=== PATIENT | female | born 1960 | race Two or more races ===

== ENCOUNTER 2020-12-11 23:53 | Inpatient (IN) | payer OTHER ==
[~2020-12-11] VITALS: Ht 162.6 cm; Wt 83.0 kg
[2020-12-12] MEDS ORDERED: ACETAMINOPHEN 500 MG TAB PO ONE (01:00)
[2020-12-12 01:09] LABS: Basophils # (auto) 0 10 ^3/uL (0-0.2); Basophils % (auto) 0.2 % (0.0-2.0); Eosinophils # (auto) 0 10 ^3/uL (0-0.8); Hematocrit 39.3 % (36.0-46.0); Hemoglobin 13.5 g/dL (12.2-16.2); Lymphocytes # (auto) 0.8 10 ^3/uL (0.4-5.4); Lymphocytes % (auto) 7.7 % (10.0-50.0); Mean Corpuscular Hemoglobin 30.5 pg (28.0-32.0); Mean Corpuscular Hgb Conc. 34.5 g/dL (32.0-36.0); Mean Corpuscular Volume 88.4 fL (80.0-100.0); Monocytes # (auto) 0.6 10 ^3/uL (0-1.3); Monocytes % (auto) 5.5 % (0.0-12.0); Neutrophils # (auto) 8.6 10 ^3/uL (1.6-8.6); Neutrophils % (auto) 86.6 % (37.0-80.0); Red Blood Cells 4.45 10^6/uL (4.0-5.20); Red Cell Distribution Width 14.5 % (11.8-14.3)
[2020-12-12 01:37] LABS: Alanine Aminotransferase 113 U/L (13-56); Albumin 2.9 g/dL (3.4-5.0); Anion Gap 8 (5-15); Aspartate Aminotransferase 76 U/L (15-37); BUN/Creatinine Ratio 23.8; Blood Urea Nitrogen 19 mg/dL (7-18); Calcium 8.5 mg/dL (8.5-10.1); Carbon Dioxide 25 mmol/L (21-32); Chloride 102 mmol/L (98-107); GFR African American 93 mL/min; GFR Non-African American 77 mL/min; Glucose 162 mg/dL (74-106); Potassium 3.4 mmol/L (3.5-5.1); Sodium 135 mmol/L (136-145)
[2020-12-12 01:41] LABS: Alkaline Phosphatase 62 U/L (45-117); Bilirubin, Total 0.6 mg/dL (0.2-1.0); Total Protein 7.9 g/dL (6.4-8.2)
[2020-12-12] MEDS ORDERED: DexAMETHasone SOD PHOS 10MG/1ML VIAL INJ IV ONE (01:45)
[2020-12-12] MEDS ORDERED: AZITHROMYCIN 500MG/ 250ML 250 ML IV ONE (02:00)
[2020-12-12] MEDS ORDERED: ACETAMINOPHEN 500 MG TAB PO PRN (02:45)
[2020-12-12] MEDS ORDERED: NITROGLYCERIN 0.4 MG SL TAB SL PRN (02:45)
[2020-12-12] MEDS ORDERED: MORPHINE SULFATE INJECTION 2 MG/ML SYRG IV PRN (02:45)
[2020-12-12] MEDS ORDERED: DEXTROSE (50%) 50ML SYRG IV PRN (02:45)
[2020-12-12] MEDS ORDERED: REMDESIVIR PER PHARMACY 0 ML IV SCH (02:45)
[2020-12-12] MEDS ORDERED: TEMAZEPAM 15 MG CAP PO PRN (02:45)
[2020-12-12 03:14] LABS: Magnesium 2.3 mg/dL (1.6-2.6)
[2020-12-12 03:23] LABS: CRP High Sensitivity 10.4 mg/dL (< 0.3)
[2020-12-12] MEDS: InsuLIN REG 1unit/0.01ml Soln (100units/ml) SC SCH ×4 (08:14→22:08)
[2020-12-12] MEDS: ACCU-CHEK COMFORT CURVE STRIP VI SCH ×4 (08:16→21:57)
[2020-12-12] MEDS: DexAMETHasone SOD PHOS 10MG/1ML VIAL INJ IV SCH (08:28)
[2020-12-12] MEDS: AZITHROMYCIN 500MG/ 250ML 250 ML IV SCH (08:28)
[2020-12-12] MEDS: ZINC SULFATE 220mg CAP or TAB PO SCH (08:29)
[2020-12-12] MEDS: ASCORBIC ACID 1,000 MG TAB PO SCH (08:29)
[2020-12-12] MEDS: ENOXAPARIN SOD 40 MG/0.4 ML SYRINGE SC SCH ×2 (08:29→22:05)
[2020-12-12] MEDS: CHOLECALCIFEROL (VITD3) 2,000 UNIT CAP/TAB PO SCH (08:29)
[2020-12-12] MEDS ORDERED: cefTRIAXone 1GM/50ML D5W 50 ML IV SCH (09:00)
[2020-12-12] MEDS: BUDESONIDE (INHALATION) 180 MCG IH IN SCH ×2 (10:00→19:00)
[2020-12-12] MEDS ORDERED: FERR27TA2 PO (16:31)
[2020-12-12] MEDS ORDERED: HYDR25TA5 PO (16:31)
[2020-12-12] MEDS ORDERED: METF-370 PO (16:31)
[2020-12-12] MEDS ORDERED: FENO145T27 PO ×2 (16:32→16:33)
[2020-12-12] MEDS ORDERED: AML5T PO (16:32)
[2020-12-12] MEDS ORDERED: LOSA-39 PO (16:32)
[2020-12-12] MEDS ORDERED: METO-158 PO (16:32)
[2020-12-12] MEDS ORDERED: ATOR20TA PO (16:33)
[2020-12-12] MEDS ORDERED: VENL37.572 PO (16:33)
[2020-12-12] MEDS ORDERED: REMDESIVIR 200 MG in NS 210ml LOADING DOSE ADULT IV ONE (21:00)
[2020-12-12] MEDS: INSULIN LANTUS (GLARGINE) 1 /0.01ml (100units/ml) SC SCH (22:09)
[2020-12-13 06:30] LABS: Basophils # (auto) 0 10 ^3/uL (0-0.2); Eosinophils # (auto) 0 10 ^3/uL (0-0.8); Hematocrit 39.4 % (36.0-46.0); Hemoglobin 13.5 g/dL (12.2-16.2); Lymphocytes # (auto) 1.1 10 ^3/uL (0.4-5.4); Lymphocytes % (auto) 7.6 % (10.0-50.0); Mean Corpuscular Hemoglobin 30.1 pg (28.0-32.0); Mean Corpuscular Hgb Conc. 34.3 g/dL (32.0-36.0); Mean Corpuscular Volume 87.7 fL (80.0-100.0); Monocytes # (auto) 0.6 10 ^3/uL (0-1.3); Monocytes % (auto) 4.4 % (0.0-12.0); Neutrophils # (auto) 12.5 10 ^3/uL (1.6-8.6); Red Blood Cells 4.49 10^6/uL (4.0-5.20); Red Cell Distribution Width 14.2 % (11.8-14.3); White Blood Cell 14.2 10^3/uL (4.4-10.8)
[2020-12-13] MEDS: ACCU-CHEK COMFORT CURVE STRIP VI SCH ×4 (06:34→21:42)
[2020-12-13] MEDS: InsuLIN REG 1unit/0.01ml Soln (100units/ml) SC SCH ×4 (06:40→21:43)
[2020-12-13] MEDS: ALBUTEROL SULF HFA 90MCG INH 200DOSE IN PRN ×2 (08:13→22:45)
[2020-12-13] MEDS: BUDESONIDE (INHALATION) 180 MCG IH IN SCH ×2 (08:13→22:05)
[2020-12-13] MEDS: cefTRIAXone 1GM/50ML D5W 50 ML IV SCH (08:53)
[2020-12-13 09:21] LABS: Albumin 2.5 g/dL (3.4-5.0); BUN/Creatinine Ratio 35.9; Calcium 8.7 mg/dL (8.5-10.1); Potassium 3.3 mmol/L (3.5-5.1)
[2020-12-13] MEDS: AZITHROMYCIN 500MG/ 250ML 250 ML IV SCH (09:23)
[2020-12-13 09:24] LABS: Bilirubin, Total 0.4 mg/dL (0.2-1.0); Total Protein 7.3 g/dL (6.4-8.2)
[2020-12-13] MEDS: ENOXAPARIN SOD 40 MG/0.4 ML SYRINGE SC SCH ×2 (09:34→21:41)
[2020-12-13] MEDS: CHOLECALCIFEROL (VITD3) 2,000 UNIT CAP/TAB PO SCH (09:34)
[2020-12-13] MEDS: DexAMETHasone SOD PHOS 10MG/1ML VIAL INJ IV SCH (09:35)
[2020-12-13] MEDS: PANTOPRAZOLE 40 MG TAB PO SCH (09:35)
[2020-12-13] MEDS: ASCORBIC ACID 1,000 MG TAB PO SCH (09:35)
[2020-12-13] MEDS: ZINC SULFATE 220mg CAP or TAB PO SCH (09:35)
[2020-12-13] MEDS ORDERED: POTASSIUM CHL 20 Meq TABLET PO ONE (13:15)
[2020-12-13] MEDS: VENLAFAXINE HCL 37.5mg XR cap PO SCH (14:14)
[2020-12-13] MEDS: REMDESIVIR 100mg 100 MG in SODIUM CHL 0.9% 230 ML IV SCH (14:15)
[2020-12-13 17:00] VITALS: BP 133/77
[2020-12-13] MEDS: ATORVASTATIN 20 MG TAB PO SCH (21:41)
[2020-12-13] MEDS: INSULIN LANTUS (GLARGINE) 1 /0.01ml (100units/ml) SC SCH (21:42)
[2020-12-13 22:00] VITALS: BP 122/74
[2020-12-14] MEDS ORDERED: FENO54TA4 PO (00:58)
[2020-12-14] MEDS ORDERED: OMEP20TA PO (00:58)
[2020-12-14 05:00] VITALS: BP 122/67
[2020-12-14 06:25] LABS: Basophils # (auto) 0 10 ^3/uL (0-0.2); Basophils % (auto) 0.2 % (0.0-2.0); Eosinophils # (auto) 0 10 ^3/uL (0-0.8); Hematocrit 38.4 % (36.0-46.0); Hemoglobin 12.9 g/dL (12.2-16.2); Lymphocytes % (auto) 10.5 % (10.0-50.0); Mean Corpuscular Hemoglobin 29.7 pg (28.0-32.0); Mean Corpuscular Hgb Conc. 33.7 g/dL (32.0-36.0); Mean Corpuscular Volume 88.1 fL (80.0-100.0); Monocytes # (auto) 0.5 10 ^3/uL (0-1.3); Monocytes % (auto) 5.5 % (0.0-12.0); Neutrophils # (auto) 8.3 10 ^3/uL (1.6-8.6); Neutrophils % (auto) 83.8 % (37.0-80.0); Nucleated Red Blood Cells % 0.1 %; Red Blood Cells 4.36 10^6/uL (4.0-5.20); Red Cell Distribution Width 14.1 % (11.8-14.3); White Blood Cell 9.9 10^3/uL (4.4-10.8)
[2020-12-14] MEDS: InsuLIN REG 1unit/0.01ml Soln (100units/ml) SC SCH ×4 (06:31→21:10)
[2020-12-14] MEDS: ACCU-CHEK COMFORT CURVE STRIP VI SCH ×4 (06:31→21:10)
[2020-12-14 06:40] LABS: Albumin 2.3 g/dL (3.4-5.0); Calcium 8.5 mg/dL (8.5-10.1); Potassium 3.6 mmol/L (3.5-5.1)
[2020-12-14 06:49] LABS: BUN/Creatinine Ratio 35.7; Bilirubin, Total 0.4 mg/dL (0.2-1.0); Total Protein 6.9 g/dL (6.4-8.2)
[2020-12-14] MEDS: BUDESONIDE (INHALATION) 180 MCG IH IN SCH ×2 (08:02→22:46)
[2020-12-14] MEDS: ALBUTEROL SULF HFA 90MCG INH 200DOSE IN PRN ×2 (08:02→22:47)
[2020-12-14 08:48] VITALS: BP 133/85
[2020-12-14] MEDS: FERROUS SULFATE 325mg EC TAB PO SCH (09:10)
[2020-12-14] MEDS: cefTRIAXone 1GM/50ML D5W 50 ML IV SCH (09:10)
[2020-12-14] MEDS: DexAMETHasone SOD PHOS 10MG/1ML VIAL INJ IV SCH (09:10)
[2020-12-14] MEDS: CHOLECALCIFEROL (VITD3) 2,000 UNIT CAP/TAB PO SCH (09:11)
[2020-12-14] MEDS: ZINC SULFATE 220mg CAP or TAB PO SCH (09:11)
[2020-12-14] MEDS: VENLAFAXINE HCL 37.5mg XR cap PO SCH (09:11)
[2020-12-14] MEDS: PANTOPRAZOLE 40 MG TAB PO SCH (09:11)
[2020-12-14] MEDS: ASCORBIC ACID 1,000 MG TAB PO SCH (09:11)
[2020-12-14] MEDS: ENOXAPARIN SOD 40 MG/0.4 ML SYRINGE SC SCH ×2 (09:44→21:10)
[2020-12-14] MEDS: AZITHROMYCIN 500MG/ 250ML 250 ML IV SCH (09:44)
[2020-12-14 13:00] VITALS: BP 125/72
[2020-12-14] MEDS: REMDESIVIR 100mg 100 MG in SODIUM CHL 0.9% 230 ML IV SCH (15:19)
[2020-12-14 17:00] VITALS: BP 121/68
[2020-12-14] MEDS: ATORVASTATIN 20 MG TAB PO SCH (21:09)
[2020-12-14] MEDS: INSULIN LANTUS (GLARGINE) 1 /0.01ml (100units/ml) SC SCH (21:10)
[2020-12-14 22:05] VITALS: BP 141/74
[2020-12-15 05:29] VITALS: BP 123/69
[2020-12-15] MEDS: ACCU-CHEK COMFORT CURVE STRIP VI SCH ×4 (06:19→21:30)
[2020-12-15] MEDS: InsuLIN REG 1unit/0.01ml Soln (100units/ml) SC SCH ×4 (06:20→21:25)
[2020-12-15] MEDS: BUDESONIDE (INHALATION) 180 MCG IH IN SCH ×2 (06:49→21:09)
[2020-12-15] MEDS: ALBUTEROL SULF HFA 90MCG INH 200DOSE IN PRN ×2 (06:50→21:09)
[2020-12-15 07:04] LABS: Basophils # (auto) 0 10 ^3/uL (0-0.2); Basophils % (auto) 0.1 % (0.0-2.0); Eosinophils # (auto) 0 10 ^3/uL (0-0.8); Eosinophils % (auto) 0.1 % (0.0-7.0); Hematocrit 38.9 % (36.0-46.0); Lymphocytes # (auto) 1.1 10 ^3/uL (0.4-5.4); Lymphocytes % (auto) 10.1 % (10.0-50.0); Mean Corpuscular Hemoglobin 29.5 pg (28.0-32.0); Mean Corpuscular Hgb Conc. 33.4 g/dL (32.0-36.0); Mean Corpuscular Volume 88.5 fL (80.0-100.0); Monocytes # (auto) 0.5 10 ^3/uL (0-1.3); Monocytes % (auto) 4.5 % (0.0-12.0); Neutrophils % (auto) 85.2 % (37.0-80.0); Nucleated Red Blood Cells % 0.1 %; Red Cell Distribution Width 14.3 % (11.8-14.3); White Blood Cell 10.5 10^3/uL (4.4-10.8)
[2020-12-15 07:24] LABS: Potassium 3.4 mmol/L (3.5-5.1)
[2020-12-15 07:28] LABS: Albumin 2.3 g/dL (3.4-5.0); BUN/Creatinine Ratio 42.5; Calcium 8.7 mg/dL (8.5-10.1)
[2020-12-15 07:36] LABS: Bilirubin, Total 0.4 mg/dL (0.2-1.0); Total Protein 6.8 g/dL (6.4-8.2)
[2020-12-15] MEDS ORDERED: POTASSIUM CHL 20 Meq TABLET PO ONE (08:30)
[2020-12-15 09:00] VITALS: BP 134/78
[2020-12-15] MEDS: DexAMETHasone SOD PHOS 10MG/1ML VIAL INJ IV SCH (09:24)
[2020-12-15] MEDS: ZINC SULFATE 220mg CAP or TAB PO SCH (09:24)
[2020-12-15] MEDS: FERROUS SULFATE 325mg EC TAB PO SCH (09:24)
[2020-12-15] MEDS: cefTRIAXone 1GM/50ML D5W 50 ML IV SCH (09:24)
[2020-12-15] MEDS: VENLAFAXINE HCL 37.5mg XR cap PO SCH (09:24)
[2020-12-15] MEDS: ENOXAPARIN SOD 40 MG/0.4 ML SYRINGE SC SCH ×2 (09:25→21:13)
[2020-12-15] MEDS: ASCORBIC ACID 1,000 MG TAB PO SCH (09:25)
[2020-12-15] MEDS: PANTOPRAZOLE 40 MG TAB PO SCH (09:25)
[2020-12-15] MEDS: CHOLECALCIFEROL (VITD3) 2,000 UNIT CAP/TAB PO SCH (09:25)
[2020-12-15] MEDS: AZITHROMYCIN 500MG/ 250ML 250 ML IV SCH (10:22)
[2020-12-15] MEDS: ONDANSETRON HCL 4 MG/2 ML VIAL IV PRN ×2 (12:02→19:01)
[2020-12-15] MEDS: REMDESIVIR 100mg 100 MG in SODIUM CHL 0.9% 230 ML IV SCH (15:21)
[2020-12-15 15:29] VITALS: BP 130/80
[2020-12-15 16:49] VITALS: BP 148/91
[2020-12-15] MEDS: ATORVASTATIN 20 MG TAB PO SCH (21:13)
[2020-12-15] MEDS: INSULIN LANTUS (GLARGINE) 1 /0.01ml (100units/ml) SC SCH (21:24)
[2020-12-15 22:00] VITALS: BP 132/82
[2020-12-16] MEDS: ONDANSETRON HCL 4 MG/2 ML VIAL IV PRN ×4 (04:54→20:02)
[2020-12-16 05:00] VITALS: BP 141/86
[2020-12-16 05:49] LABS: Hematocrit 38.2 % (36.0-46.0); Mean Corpuscular Hemoglobin 30.3 pg (28.0-32.0); Mean Corpuscular Hgb Conc. 34.1 g/dL (32.0-36.0); Mean Corpuscular Volume 88.9 fL (80.0-100.0); Red Cell Distribution Width 14.1 % (11.8-14.3); White Blood Cell 13.3 10^3/uL (4.4-10.8)
[2020-12-16 06:15] LABS: Basophils % (manual) 0 (0.0-2.0); Blast Cells 0; Eosinophils % (manual) 0 (0-7); Myelocytes % 0; Promyelocytes % 0
[2020-12-16 06:22] LABS: Albumin 2.2 g/dL (3.4-5.0); BUN/Creatinine Ratio 31.3; Calcium 8.6 mg/dL (8.5-10.1); Potassium 4.2 mmol/L (3.5-5.1)
[2020-12-16 06:31] LABS: Bilirubin, Total 0.4 mg/dL (0.2-1.0); CRP High Sensitivity 3.68 mg/dL (< 0.3); Total Protein 6.6 g/dL (6.4-8.2)
[2020-12-16] MEDS: ACCU-CHEK COMFORT CURVE STRIP VI SCH ×4 (06:33→21:57)
[2020-12-16] MEDS: InsuLIN REG 1unit/0.01ml Soln (100units/ml) SC SCH ×5 (06:34→22:26)
[2020-12-16] MEDS: ALBUTEROL SULF HFA 90MCG INH 200DOSE IN PRN ×2 (06:45→20:42)
[2020-12-16] MEDS: BUDESONIDE (INHALATION) 180 MCG IH IN SCH ×2 (06:45→20:42)
[2020-12-16 06:55] LABS: Band Neutrophils % (manual) 9; Lymphocytes % (manual) 7 (10.0-50.0); Metamyelocytes % 1; Monocytes % (manual) 3 (0-12); Reactive Lymphocytes 1
[2020-12-16 09:00] VITALS: BP 125/81
[2020-12-16] MEDS: cefTRIAXone 1GM/50ML D5W 50 ML IV SCH (10:24)
[2020-12-16] MEDS: DexAMETHasone SOD PHOS 10MG/1ML VIAL INJ IV SCH (10:25)
[2020-12-16] MEDS: ZINC SULFATE 220mg CAP or TAB PO SCH (10:25)
[2020-12-16] MEDS: PANTOPRAZOLE 40 MG TAB PO SCH (10:25)
[2020-12-16] MEDS: ASCORBIC ACID 1,000 MG TAB PO SCH (10:25)
[2020-12-16] MEDS: FERROUS SULFATE 325mg EC TAB PO SCH (10:25)
[2020-12-16] MEDS: ENOXAPARIN SOD 40 MG/0.4 ML SYRINGE SC SCH ×2 (10:25→22:27)
[2020-12-16] MEDS: CHOLECALCIFEROL (VITD3) 2,000 UNIT CAP/TAB PO SCH (10:25)
[2020-12-16] MEDS: VENLAFAXINE HCL 37.5mg XR cap PO SCH (10:26)
[2020-12-16] MEDS: AZITHROMYCIN 500MG/ 250ML 250 ML IV SCH (10:48)
[2020-12-16 13:00] VITALS: BP 124/80
[2020-12-16] MEDS: REMDESIVIR 100mg 100 MG in SODIUM CHL 0.9% 230 ML IV SCH (15:59)
[2020-12-16 17:00] VITALS: BP 130/90
[2020-12-16] MEDS: INSULIN LANTUS (GLARGINE) 1 /0.01ml (100units/ml) SC SCH (22:09)
[2020-12-16] MEDS: ATORVASTATIN 20 MG TAB PO SCH (22:26)
[2020-12-17] MEDS: ONDANSETRON HCL 4 MG/2 ML VIAL IV PRN ×4 (00:26→18:40)
[2020-12-17 05:00] VITALS: BP 126/75
[2020-12-17] MEDS: ACCU-CHEK COMFORT CURVE STRIP VI SCH ×4 (06:14→21:17)
[2020-12-17] MEDS: InsuLIN REG 1unit/0.01ml Soln (100units/ml) SC SCH ×4 (06:14→21:22)
[2020-12-17] MEDS: FERROUS SULFATE 325mg EC TAB PO SCH (08:50)
[2020-12-17] MEDS: ZINC SULFATE 220mg CAP or TAB PO SCH (08:50)
[2020-12-17] MEDS: DexAMETHasone SOD PHOS 10MG/1ML VIAL INJ IV SCH (08:50)
[2020-12-17] MEDS: cefTRIAXone 1GM/50ML D5W 50 ML IV SCH (08:50)
[2020-12-17] MEDS: ASCORBIC ACID 1,000 MG TAB PO SCH (08:51)
[2020-12-17] MEDS: PANTOPRAZOLE 40 MG TAB PO SCH (08:51)
[2020-12-17] MEDS: VENLAFAXINE HCL 37.5mg XR cap PO SCH (08:51)
[2020-12-17] MEDS: CHOLECALCIFEROL (VITD3) 2,000 UNIT CAP/TAB PO SCH (08:51)
[2020-12-17] MEDS: ENOXAPARIN SOD 40 MG/0.4 ML SYRINGE SC SCH ×2 (08:52→21:17)
[2020-12-17 09:00] VITALS: BP 129/78
[2020-12-17] MEDS: BUDESONIDE (INHALATION) 180 MCG IH IN SCH ×2 (10:00→21:29)
[2020-12-17 13:00] VITALS: BP 110/62
[2020-12-17 17:03] VITALS: BP 128/79
[2020-12-17] MEDS: ATORVASTATIN 20 MG TAB PO SCH (21:16)
[2020-12-17] MEDS: INSULIN LANTUS (GLARGINE) 1 /0.01ml (100units/ml) SC SCH (21:27)
[2020-12-17] MEDS: ALBUTEROL SULF HFA 90MCG INH 200DOSE IN PRN (21:29)
[2020-12-17 22:00] VITALS: BP 132/80
[2020-12-18] MEDS: ONDANSETRON HCL 4 MG/2 ML VIAL IV PRN ×4 (00:06→17:32)
[2020-12-18 05:00] VITALS: BP 143/83
[2020-12-18] MEDS: ACCU-CHEK COMFORT CURVE STRIP VI SCH ×4 (06:03→21:15)
[2020-12-18] MEDS: InsuLIN REG 1unit/0.01ml Soln (100units/ml) SC SCH ×4 (06:03→21:34)
[2020-12-18] MEDS: ALBUTEROL SULF HFA 90MCG INH 200DOSE IN PRN ×2 (06:52→21:48)
[2020-12-18] MEDS: BUDESONIDE (INHALATION) 180 MCG IH IN SCH ×2 (06:52→21:48)
[2020-12-18] MEDS: DexAMETHasone SOD PHOS 10MG/1ML VIAL INJ IV SCH (08:41)
[2020-12-18] MEDS: FERROUS SULFATE 325mg EC TAB PO SCH (08:42)
[2020-12-18] MEDS: ASCORBIC ACID 1,000 MG TAB PO SCH (08:42)
[2020-12-18] MEDS: VENLAFAXINE HCL 37.5mg XR cap PO SCH (08:42)
[2020-12-18] MEDS: CHOLECALCIFEROL (VITD3) 2,000 UNIT CAP/TAB PO SCH (08:42)
[2020-12-18] MEDS: PANTOPRAZOLE 40 MG TAB PO SCH (08:42)
[2020-12-18] MEDS: ENOXAPARIN SOD 40 MG/0.4 ML SYRINGE SC SCH ×2 (08:42→21:15)
[2020-12-18] MEDS: ZINC SULFATE 220mg CAP or TAB PO SCH (08:42)
[2020-12-18 08:54] VITALS: BP 121/79
[2020-12-18 09:55] LABS: Basophils # (auto) 0 10 ^3/uL (0-0.2); Basophils % (auto) 0.2 % (0.0-2.0); Eosinophils # (auto) 0.1 10 ^3/uL (0-0.8); Lymphocytes # (auto) 0.6 10 ^3/uL (0.4-5.4); Monocytes # (auto) 0.5 10 ^3/uL (0-1.3)
[2020-12-18 09:57] LABS: Eosinophils % (auto) 0.6 % (0.0-7.0); Hematocrit 38.6 % (36.0-46.0); Lymphocytes % (auto) 5.1 % (10.0-50.0); Mean Corpuscular Hemoglobin 29.8 pg (28.0-32.0); Mean Corpuscular Hgb Conc. 33.6 g/dL (32.0-36.0); Mean Corpuscular Volume 88.5 fL (80.0-100.0); Monocytes % (auto) 3.9 % (0.0-12.0); Neutrophils % (auto) 90.2 % (37.0-80.0); Red Blood Cells 4.37 10^6/uL (4.0-5.20); White Blood Cell 12.2 10^3/uL (4.4-10.8)
[2020-12-18 10:39] LABS: Calcium 8.3 mg/dL (8.5-10.1); Potassium 3.4 mmol/L (3.5-5.1)
[2020-12-18 10:42] LABS: BUN/Creatinine Ratio 25.9
[2020-12-18 13:00] VITALS: BP 116/67
[2020-12-18 17:00] VITALS: BP 126/77
[2020-12-18] MEDS: ATORVASTATIN 20 MG TAB PO SCH (21:15)
[2020-12-18] MEDS: INSULIN LANTUS (GLARGINE) 1 /0.01ml (100units/ml) SC SCH (21:35)
[2020-12-18 22:00] VITALS: BP 139/86
[2020-12-19 05:00] VITALS: BP 127/71
[2020-12-19] MEDS: ACCU-CHEK COMFORT CURVE STRIP VI SCH ×4 (06:17→21:34)
[2020-12-19] MEDS: InsuLIN REG 1unit/0.01ml Soln (100units/ml) SC SCH ×4 (06:27→22:03)
[2020-12-19] MEDS: VENLAFAXINE HCL 37.5mg XR cap PO SCH (09:01)
[2020-12-19] MEDS: ZINC SULFATE 220mg CAP or TAB PO SCH (09:01)
[2020-12-19] MEDS: PANTOPRAZOLE 40 MG TAB PO SCH (09:01)
[2020-12-19] MEDS: FERROUS SULFATE 325mg EC TAB PO SCH (09:01)
[2020-12-19] MEDS: DexAMETHasone SOD PHOS 10MG/1ML VIAL INJ IV SCH (09:01)
[2020-12-19] MEDS: ASCORBIC ACID 1,000 MG TAB PO SCH (09:02)
[2020-12-19] MEDS: CHOLECALCIFEROL (VITD3) 2,000 UNIT CAP/TAB PO SCH (09:02)
[2020-12-19] MEDS: ENOXAPARIN SOD 40 MG/0.4 ML SYRINGE SC SCH ×2 (09:02→21:33)
[2020-12-19] MEDS: ALBUTEROL SULF HFA 90MCG INH 200DOSE IN PRN ×2 (09:37→20:24)
[2020-12-19] MEDS: BUDESONIDE (INHALATION) 180 MCG IH IN SCH ×2 (09:37→19:37)
[2020-12-19 10:05] VITALS: BP 100/64
[2020-12-19] MEDS: ONDANSETRON HCL 4 MG/2 ML VIAL IV PRN ×3 (11:14→21:43)
[2020-12-19 13:00] VITALS: BP 133/69
[2020-12-19] MEDS: POLYETHYLENE GLYCOL 17 GM PWDR PO PRN (16:17)
[2020-12-19 17:00] VITALS: BP 149/79
[2020-12-19] MEDS: ATORVASTATIN 20 MG TAB PO SCH (21:33)
[2020-12-19 21:49] VITALS: BP 131/79
[2020-12-19] MEDS: INSULIN LANTUS (GLARGINE) 1 /0.01ml (100units/ml) SC SCH (22:03)
[2020-12-20 05:00] VITALS: BP 117/81
[2020-12-20] MEDS: InsuLIN REG 1unit/0.01ml Soln (100units/ml) SC SCH ×4 (06:21→21:40)
[2020-12-20] MEDS: ACCU-CHEK COMFORT CURVE STRIP VI SCH ×4 (06:21→21:36)
[2020-12-20] MEDS: ONDANSETRON HCL 4 MG/2 ML VIAL IV PRN ×3 (06:22→21:49)
[2020-12-20] MEDS: BUDESONIDE (INHALATION) 180 MCG IH IN SCH ×2 (06:51→21:54)
[2020-12-20] MEDS: ALBUTEROL SULF HFA 90MCG INH 200DOSE IN PRN (06:51)
[2020-12-20 09:00] VITALS: BP 113/71
[2020-12-20] MEDS: DexAMETHasone SOD PHOS 10MG/1ML VIAL INJ IV SCH (10:03)
[2020-12-20] MEDS: VENLAFAXINE HCL 37.5mg XR cap PO SCH (10:03)
[2020-12-20] MEDS: PANTOPRAZOLE 40 MG TAB PO SCH (10:03)
[2020-12-20] MEDS: ASCORBIC ACID 1,000 MG TAB PO SCH (10:03)
[2020-12-20] MEDS: ZINC SULFATE 220mg CAP or TAB PO SCH (10:03)
[2020-12-20] MEDS: FERROUS SULFATE 325mg EC TAB PO SCH (10:03)
[2020-12-20] MEDS: ENOXAPARIN SOD 40 MG/0.4 ML SYRINGE SC SCH ×2 (10:04→21:49)
[2020-12-20] MEDS: CHOLECALCIFEROL (VITD3) 2,000 UNIT CAP/TAB PO SCH (10:04)
[2020-12-20 10:52] LABS: Basophils # (auto) 0 10 ^3/uL (0-0.2); Basophils % (auto) 0.3 % (0.0-2.0); Eosinophils # (auto) 0 10 ^3/uL (0-0.8); Eosinophils % (auto) 0.5 % (0.0-7.0); Hematocrit 38.6 % (36.0-46.0); Lymphocytes # (auto) 0.8 10 ^3/uL (0.4-5.4); Lymphocytes % (auto) 8.2 % (10.0-50.0); Mean Corpuscular Hemoglobin 29.9 pg (28.0-32.0); Mean Corpuscular Hgb Conc. 33.7 g/dL (32.0-36.0); Mean Corpuscular Volume 88.8 fL (80.0-100.0); Monocytes # (auto) 0.7 10 ^3/uL (0-1.3); Monocytes % (auto) 6.9 % (0.0-12.0); Neutrophils % (auto) 84.1 % (37.0-80.0); Red Blood Cells 4.34 10^6/uL (4.0-5.20); Red Cell Distribution Width 13.9 % (11.8-14.3); White Blood Cell 9.5 10^3/uL (4.4-10.8)
[2020-12-20 11:10] LABS: BUN/Creatinine Ratio 21.1; CRP High Sensitivity 0.54 mg/dL (< 0.3); Calcium 8.6 mg/dL (8.5-10.1)
[2020-12-20 13:00] VITALS: BP 108/72
[2020-12-20 16:41] VITALS: BP 140/91
[2020-12-20] MEDS: INSULIN LANTUS (GLARGINE) 1 /0.01ml (100units/ml) SC SCH (21:39)
[2020-12-20] MEDS: ATORVASTATIN 20 MG TAB PO SCH (21:49)
[2020-12-21 05:00] VITALS: BP 121/77
[2020-12-21 06:19] LABS: Basophils # (auto) 0 10 ^3/uL (0-0.2); Basophils % (auto) 0.1 % (0.0-2.0); Eosinophils # (auto) 0 10 ^3/uL (0-0.8); Eosinophils % (auto) 0.3 % (0.0-7.0); Hematocrit 40.3 % (36.0-46.0); Hemoglobin 13.6 g/dL (12.2-16.2); Lymphocytes # (auto) 1.1 10 ^3/uL (0.4-5.4)
[2020-12-21 06:22] LABS: Lymphocytes % (auto) 10.1 % (10.0-50.0); Mean Corpuscular Hemoglobin 30.1 pg (28.0-32.0); Mean Corpuscular Hgb Conc. 33.7 g/dL (32.0-36.0); Mean Corpuscular Volume 89.4 fL (80.0-100.0); Monocytes # (auto) 0.7 10 ^3/uL (0-1.3); Monocytes % (auto) 6.8 % (0.0-12.0); Neutrophils # (auto) 8.7 10 ^3/uL (1.6-8.6); Neutrophils % (auto) 82.7 % (37.0-80.0); White Blood Cell 10.5 10^3/uL (4.4-10.8)
[2020-12-21 06:32] LABS: BUN/Creatinine Ratio 28.6; Calcium 9.3 mg/dL (8.5-10.1); Potassium 3.9 mmol/L (3.5-5.1)
[2020-12-21] MEDS: ACCU-CHEK COMFORT CURVE STRIP VI SCH ×4 (06:34→21:05)
[2020-12-21] MEDS: InsuLIN REG 1unit/0.01ml Soln (100units/ml) SC SCH ×4 (06:34→21:13)
[2020-12-21] MEDS: ALBUTEROL SULF HFA 90MCG INH 200DOSE IN PRN ×2 (06:42→22:47)
[2020-12-21] MEDS: BUDESONIDE (INHALATION) 180 MCG IH IN SCH ×2 (06:42→22:00)
[2020-12-21] MEDS: ONDANSETRON HCL 4 MG/2 ML VIAL IV PRN (06:51)
[2020-12-21 09:00] VITALS: BP 91/48
[2020-12-21] MEDS: FERROUS SULFATE 325mg EC TAB PO SCH (11:00)
[2020-12-21] MEDS: ENOXAPARIN SOD 40 MG/0.4 ML SYRINGE SC SCH ×2 (11:01→21:12)
[2020-12-21] MEDS: CHOLECALCIFEROL (VITD3) 2,000 UNIT CAP/TAB PO SCH (11:01)
[2020-12-21] MEDS: ASCORBIC ACID 1,000 MG TAB PO SCH (11:01)
[2020-12-21] MEDS: VENLAFAXINE HCL 37.5mg XR cap PO SCH (11:01)
[2020-12-21] MEDS: ZINC SULFATE 220mg CAP or TAB PO SCH (11:01)
[2020-12-21] MEDS: PANTOPRAZOLE 40 MG TAB PO SCH (11:01)
[2020-12-21] MEDS: DexAMETHasone SOD PHOS 10MG/1ML VIAL INJ IV SCH (12:22)
[2020-12-21 17:00] VITALS: BP 122/74
[2020-12-21] MEDS: POLYETHYLENE GLYCOL 17 GM PWDR PO PRN (18:46)
[2020-12-21] MEDS: ATORVASTATIN 20 MG TAB PO SCH (21:12)
[2020-12-21] MEDS: INSULIN LANTUS (GLARGINE) 1 /0.01ml (100units/ml) SC SCH (21:13)
[2020-12-21 22:00] VITALS: BP 108/74
[2020-12-22 05:00] VITALS: BP 131/80
[2020-12-22] MEDS: ACCU-CHEK COMFORT CURVE STRIP VI SCH ×4 (06:08→22:25)
[2020-12-22] MEDS: InsuLIN REG 1unit/0.01ml Soln (100units/ml) SC SCH ×4 (06:11→22:29)
[2020-12-22 09:00] VITALS: BP 100/50
[2020-12-22] MEDS: VENLAFAXINE HCL 37.5mg XR cap PO SCH (09:41)
[2020-12-22] MEDS: ZINC SULFATE 220mg CAP or TAB PO SCH (09:41)
[2020-12-22] MEDS: ASCORBIC ACID 1,000 MG TAB PO SCH (09:41)
[2020-12-22] MEDS: CHOLECALCIFEROL (VITD3) 2,000 UNIT CAP/TAB PO SCH (09:41)
[2020-12-22] MEDS: PANTOPRAZOLE 40 MG TAB PO SCH (09:41)
[2020-12-22] MEDS: FERROUS SULFATE 325mg EC TAB PO SCH (09:42)
[2020-12-22] MEDS: ENOXAPARIN SOD 40 MG/0.4 ML SYRINGE SC SCH ×2 (09:42→22:27)
[2020-12-22] MEDS: DexAMETHasone SOD PHOS 10MG/1ML VIAL INJ IV SCH (09:42)
[2020-12-22] MEDS: BUDESONIDE (INHALATION) 180 MCG IH IN SCH ×2 (11:12→21:25)
[2020-12-22] MEDS: ALBUTEROL SULF HFA 90MCG INH 200DOSE IN PRN ×2 (11:13→21:25)
[2020-12-22] MEDS: ONDANSETRON HCL 4 MG/2 ML VIAL IV PRN ×2 (11:58→20:13)
[2020-12-22 12:57] VITALS: BP 121/78
[2020-12-22] MEDS ORDERED: ALBUAER3 IN (13:37)
[2020-12-22 17:00] VITALS: BP 119/76
[2020-12-22 22:00] VITALS: BP 123/80
[2020-12-22] MEDS: ATORVASTATIN 20 MG TAB PO SCH (22:25)
[2020-12-22] MEDS: POLYETHYLENE GLYCOL 17 GM PWDR PO PRN (22:26)
[2020-12-22] MEDS: INSULIN LANTUS (GLARGINE) 1 /0.01ml (100units/ml) SC SCH (22:28)
[2020-12-23 05:00] VITALS: BP 138/76
[2020-12-23] MEDS: ACCU-CHEK COMFORT CURVE STRIP VI SCH ×2 (06:03→12:03)
[2020-12-23] MEDS: InsuLIN REG 1unit/0.01ml Soln (100units/ml) SC SCH ×2 (06:11→12:04)
[2020-12-23] MEDS: ALBUTEROL SULF HFA 90MCG INH 200DOSE IN PRN (06:58)
[2020-12-23] MEDS: BUDESONIDE (INHALATION) 180 MCG IH IN SCH (06:58)
[2020-12-23 08:00] VITALS: BP 104/65
[2020-12-23 09:00] VITALS: BP 104/65
[2020-12-23] MEDS: FERROUS SULFATE 325mg EC TAB PO SCH (09:28)
[2020-12-23] MEDS: ZINC SULFATE 220mg CAP or TAB PO SCH (09:28)
[2020-12-23] MEDS: DexAMETHasone SOD PHOS 10MG/1ML VIAL INJ IV SCH (09:28)
[2020-12-23] MEDS: VENLAFAXINE HCL 37.5mg XR cap PO SCH (09:28)
[2020-12-23] MEDS: CHOLECALCIFEROL (VITD3) 2,000 UNIT CAP/TAB PO SCH (09:29)
[2020-12-23] MEDS: PANTOPRAZOLE 40 MG TAB PO SCH (09:29)
[2020-12-23] MEDS: ASCORBIC ACID 1,000 MG TAB PO SCH (09:29)
[2020-12-23] MEDS: ENOXAPARIN SOD 40 MG/0.4 ML SYRINGE SC SCH (09:29)
[2020-12-23] MEDS: ONDANSETRON HCL 4 MG/2 ML VIAL IV PRN (12:13)
[2020-12-23 12:49] VITALS: BP 132/85
[2020-12-23] MEDS ORDERED: ONDA-144 PO (15:27)
[2020-12-23 15:32] VITALS: BP 104/65
== END 2020-12-23 18:40 | disposition home or self-care (01) | DRG 177 ==
LOC: ER 23:53 → TELE 12-12 02:35 → TELE-EAST 12-13 17:15 → EAST 12-15 13:00 → TELE-E-ADS 12-15 13:06
PROVIDERS: ADMIT Nurse Practitioner; ATTEND Internal Medicine
PROC: XW033E5 Introduction of Remdesivir Anti-infective into Peripheral Vein, Percutaneous Approach, New Technology Group 5 (ICD-10-PCS; principal; 2020-12-12)
DX: U07.1 COVID-19 (principal); J12.82 Pneumonia due to coronavirus disease 2019; J96.01 Acute respiratory failure with hypoxia; J98.11 Atelectasis; E11.9 Type 2 diabetes mellitus without complications; I10 Essential (primary) hypertension; E66.01 Morbid (severe) obesity due to excess calories; E78.5 Hyperlipidemia, unspecified; F32.9 Major depressive disorder, single episode, unspecified; Z68.30 Body mass index [BMI] 30.0-30.9, adult
CPT/HCPCS: 36415; 36600; 71045; 80048; 80053; 82728; 82805; 82962; 83605; 83615; 83735; 83880; 84484; 85007; 85025; 85027; 85379; 86141; 87040; 87426; 93005; 94640; 96365; 96375; G0378; J0696; J1100; J1815; J2405